=== PATIENT | female | born 1985 | race African-American/Black ===

== ENCOUNTER 2018-12-14 11:56 | Emergency (ER) | payer SELFPAY ==
[~2018-12-14] VITALS: Ht 160 cm; Wt 95.5 kg
[2018-12-14 12:56] LABS: MD YES; MEAN CORPUSCULAR HEMOGLOBIN 24.7 pg (27.0-34.8); MEAN CORPUSCULAR HGB CONC 31.7 g/dL (32.4-35.8); MEAN CORPUSCULAR VOLUME 78.1 fL (80-100); MEAN PLATELET VOLUME 8.4 fL (7.4-10.4); PLATELET COUNT 314 x10^3/uL (130-400); RED BLOOD COUNT 5.03 x10^6/uL (3.82-5.3); RED CELL DISTRIBUTION WIDTH 16.3 % (9.6-15.2)
[2018-12-14 13:08] LABS: ANISOCYTOSIS 1+; EOS#(MANUAL) 0.08 x10^3/uL (0.0-0.4); EOS% (MANUAL) 2 % (1-7); LYMPH#(MANUAL) 2.39 x10^3/uL (1-3.4); LYMPHS% (MANUAL) 57 % (22-44); MONOS#(MANUAL) 0.42 x10^3/uL (0.3-2.7); MONOS% (MANUAL) 10 % (2-9); SEGS% (MANUAL) 31 % (42-75)
[2018-12-14 13:09] LABS: <PLATELET ESTIMATE> ADEQUATE; LARGE PLATELETS 1+
[2018-12-14] MEDS ORDERED: MORPHINE SULFATE 4 MG/ML, 1ML IVPush ONE (13:30)
[2018-12-14] MEDS ORDERED: METOCLOPRAMIDE 5 MG/ML, 2ML IVPush ONE (13:30)
[2018-12-14] MEDS ORDERED: KETOROLAC 30 MG/1 ML IVPush ONE (13:30)
[2018-12-14] MEDS ORDERED: PLEASE ENTER ALLERGIES MC SCH (13:30)
[2018-12-14] MEDS ORDERED: METOCLOPRAMIDE 5 MG/ML, 2ML ONE (13:38)
[2018-12-14] MEDS ORDERED: KETOROLAC 30 MG/1 ML ONE (13:38)
[2018-12-14] MEDS ORDERED: MORPHINE SULFATE 4 MG/ML, 1ML ONE (13:38)
[2018-12-14 14:04] VITALS: BP 113/74
== END 2018-12-14 14:36 | disposition home or self-care (01) ==
LOC: ED 14:19
DX: R51 Headache (principal)
CPT/HCPCS: 36415; 84703; 85025; 96374; 96375; 99283; J1885; J2270; J2765

== ENCOUNTER 2019-08-10 20:20 | Emergency (ER) | payer SELFPAY ==
[~2019-08-10] VITALS: Ht 160 cm; Wt 91.6 kg
[2019-08-10] MEDS ORDERED: DIPHENHYDRAMINE 50 MG/ML, 1ML IVPush ONE (21:30)
[2019-08-10] MEDS ORDERED: PROCHLORPERAZINE 5 MG/ML, 2ML IVPush ONE (21:30)
[2019-08-10] MEDS ORDERED: KETOROLAC 30 MG/1 ML IVPush ONE (21:30)
[2019-08-10] MEDS ORDERED: PROCHLORPERAZINE 5 MG/ML, 2ML ONE (21:31)
[2019-08-10] MEDS ORDERED: DIPHENHYDRAMINE 50 MG/ML, 1ML ONE (21:31)
[2019-08-10] MEDS ORDERED: KETOROLAC 30 MG/1 ML ONE (21:31)
[2019-08-10 21:39] VITALS: BP 141/94
--- NOTE | 2019-08-10 21:57 | NUR ---
PT TO BR. PT STATES SHE DOESN'T LIKE THE FEELING THE MEDICATIONS GAVE HER. DR NOTIFIED. PT DENIES ANY SOB, DIFFCULTY SWALLOWING. NO RASH NOTED. SEE MAR.
== END 2019-08-10 22:39 | disposition home or self-care (01) ==
LOC: ED 21:35
DX: G43.009 Migraine without aura, not intractable, without status migrainosus (principal); R94.31 Abnormal electrocardiogram [ECG] [EKG]
CPT/HCPCS: 93005; 96374; 96375; 99284; J0780; J1200; J1885